=== PATIENT | female | born 1955 | race Caucasian/White ===

== ENCOUNTER 2019-06-12 07:00 | Day surgery (SDC) | payer MEDICARE, OTHER ==
[2019-06-11 09:01] LABS: EOSINOPHILS 1.6 % (0-7); HEMATOCRIT 44.5 % (36.0-48.0); HEMOGLOBIN 14.4 g/dL (12-16); IMMATURE GRANULOCYTES 0.3 % (0-5); LYMPHOCYTES 37.9 % (15-50); MCH 30.8 pg (26.0-34.0); MCHC 32.4 g/dL (31.0-37.0); MCV 95.3 fL (80.0-100.0); MEAN PLATELET VOLUME 10.3 fL (7.4-10.4); NEUTROPHILS 50.2 % (40-80); PLATELET COUNT 311 10x3/uL (130-400); RBC 4.67 10x6/uL (4.00-5.40); RDW 12.8 % (11.5-14.5); WBC 6.3 10x3/uL (4.8-10.8)
[2019-06-11 09:17] LABS: ANION GAP 15.8 mmol/L (8-16); CALCIUM 9.1 mg/dL (8.5-10.1); CARBON DIOXIDE 26.4 mmol/L (21.0-32.0); CREATININE - SERUM 0.9 mg/dL (0.6-1.3); POTASSIUM - SERUM 4.2 mmol/L (3.5-5.1)
[~2019-06-12] VITALS: Ht 160 cm; Wt 71.7 kg
[~2019-06-12 07:00] MED LIST: ATIVAN1 MG PO; PRAVACHOL20 MG PO; PROTONIX40 MG PO; SINGULAIR10 MG PO; TRAZODONE HCL150 MG PO
[2019-06-12 07:42] VITALS: BP 174/91; Ht 160 cm; Wt 71.7 kg
[2019-06-12] MEDS ORDERED: HYDROCODON-ACE1 EA10 PO (09:15)
--- NOTE | 2019-06-12 15:41 | NUR ---
1029 1 TONG PO FOR COMPLAINTS OF PAIN @ 03/17. Tommy LOVE R.N.
--- NOTE | 2019-06-12 15:47 | NUR ---
1130 DR. FRANCO CALLED. REPORT OF BRUISING TO LEFT INNER EYE/BRIDGE OF NOSE. STATES WILL COME IN 20 MINUTES. PT INFORMED. Tommy LOVE R.N. 1150 PT DRESSED, AWAKE & ALERT. GIVEN DISCHARGE INSTRUCTIONS INCLUDING: MED REC, RX: NORCO 10/325MG, [facility] D/C INSTRUCTIONS, & [facility] D/C INSTRUCTIONS PT VOICED UNDERSTANDING. RESTING IN BED WITH ICE PACKS TO ABDOMEN. STILL AWAITING DR. FRANCO. Tommy LOVE R.N. 1215 PT REQUESTS D/C EVEN THOUGH DR. FRANCO HAS NOT SEEN HER. TO PRIVATE CAR PER WHEELCHAIR BY VOLUNTEER. HOME WITH SISTER. Tommy LOVE R.N.
--- NOTE | 2019-06-19 14:22 | OP ---
PATIENT NAME: ETELVINA FLANAGAN MEDICAL RECORD: [id number] :57 LOCATION:D.OPS ADMISSION DATE: SURGEON: LEWIS ESPINAL MD DATE OF OPERATION: 06/12/2019 PREOPERATIVE DIAGNOSES: 1. Gallstones. 2. Hypercholesterolemia. POSTOPERATIVE DIAGNOSES: 1. Gallstones. 2. Hypercholesterolemia. PROCEDURE: Laparoscopic cholecystectomy. SURGEON: Lewis Espinal MD REPORT OF PROCEDURE: The patient's abdomen was prepped and draped in sterile fashion. A cutdown was made on the superior aspect of the umbilicus, 0 Vicryls were placed in the fascia bilaterally and the fascia was incised with 15-blade. I then bluntly entered the peritoneal cavity and placed a 12-mm Latonya port. Under direct visualization, a 5 mm trocar was placed in the epigastrium and 2 more 5-mm trocars were placed in the right subcostal region. The gallbladder was grasped and elevated. Any inflammatory adhesions were teased down with blunt dissection. The cystic artery and cystic duct were dissected free and these were clipped proximally and distally and ligated in standard fashion. The gallbladder was taken off the liver bed using electrocautery and placed into an Endo Catch bag. At this point, the ports and insufflation were then removed and the gallbladder was taken out through the umbilicus. The umbilical fascia was closed with interrupted 0 Vicryls times 3. The wounds were irrigated out with normal saline and infused with 10 mL of 0.25% Marcaine with epinephrine. The skin incisions were all closed with subcutaneous 5-0 Monocryl and dressed appropriately. COMPLICATIONS: None. CONDITION: Stable. ANESTHESIA: General endotracheal and local. BLOOD LOSS: Minimal. TRANSINT:[id number] Voice Confirmation ID: [id number] DOCUMENT ID: [id number] LEWIS ESPINAL MD at 1422 CC: ROMERO ANTUNEZ MD [id number] DICTATION DATE: 06/12/19919 SAND CARRIER: 06/12/[address] [facility] 06/12/19 [place] [id number] [place] [id number]
== END 2019-06-12 12:15 | disposition home or self-care (01) ==
LOC: D.OPS 07:00 → D.PAN 09:30 → D.OPS 09:30
PROVIDERS: ATTEND Surgery
DX: K80.80 Other cholelithiasis without obstruction (principal); E78.00 Pure hypercholesterolemia, unspecified